=== PATIENT | male | born 1980 | race Caucasian/White ===

== ENCOUNTER 2018-01-23 17:06 | Emergency (ER) | payer OTHER ==
[~2018-01-23] VITALS: Ht 172.7 cm; Wt 81.6 kg
[2018-01-23 17:20] VITALS: BP 130/93
--- NOTE | 2018-01-23 18:51 | PHYS DOC ---
Past Medical History Past Medical History: No Pertinent History Past Surgical History: No Surgical History Alcohol Use: Occasionally Additional Information: PATIENT REPORTS HE HAS HAD ETOH THIS DATE Drug Use: None Adult General Chief Complaint Chief Complaint: FOOT INJURY PAIN HPI HPI Patient is a 37 year old male with no significant medical history who presents today complaining of 8 out of 10 left lateral foot pain that began yesterday more patient states the pain began while jumping on a trampoline. Patient describes the pain as sharp and intermittent. Review of Systems Review of Systems Constitutional: Denies fever or chills [] Musculoskeletal: Left lateral foot pain Integument: Denies rash or skin lesions [] Neurologic: Denies headache, focal weakness or sensory changes [] All other systems were reviewed and found to be within normal limits, except as documented in this note. Allergies Allergies Allergies Coded Allergies Type Severity Reaction Last Updated Verified No Known Drug Allergies 01/23/18 No Physical Exam Physical Exam Constitutional: Well developed, well nourished, no acute distress, non-toxic appearance. [] Skin: Warm, dry, no erythema, no rash. [] Back: No tenderness, no CVA tenderness. [] Extremities: Left foot with no obvious deformity. Tenderness on palpation of the left lateral base of fifth metatarsal. No navicular bone tenderness. Full range of motion to the left toes and foot. +2 left pedal pulse. Cap refill less than 2 seconds left toes. Neurologic: Alert and oriented X 3, normal motor function, normal sensory function, no focal deficits noted. [] Psychologic: Affect normal, judgement normal, mood normal. [] Current Patient Data Vital Signs Vital Signs Date Time Temp Pulse Resp B/P (MAP) Pulse Ox O2 Delivery O2 Flow Rate FiO2 01/23/18 17:20 98.0 98 16 130/93 (105) 94 Room Air 98.0 EKG EKG [] Radiology/Procedures Radiology/Procedures [] Course & Med Decision Making Course & Med Decision Making Pertinent Labs and Imaging studies reviewed. (See chart for details) This is a 37-year-old male patient presenting to the ED today with left foot pain after jumping on the trampoline yesterday. X-rays were ordered. Patient has been in a cardozo since arrival to the ED. He states he does not want to be here for hours. As he was waiting for xrays he was found standing in front of his room taking pictures of ED activities and other patients and people. Security had to be called, he was asked to stay in his room. He eloped. Jeevan Disclaimer Jeevan Disclaimer This electronic medical record was generated, in whole or in part, using a voice recognition dictation system. Departure Departure Impression: Primary Impression: Left foot pain Disposition: 07 AGAINST MEDICAL ADVICE Condition: STABLE Referrals: UNKNOWN PCP NAME (PCP) CALISTA BOLTON APRN Jan 23, 2018 18:51
== END 2018-01-23 18:05 | disposition left against medical advice (07) ==
LOC: ER 17:06
DX: M79.672 Pain in left foot (principal)
CPT/HCPCS: 99281